=== PATIENT | male | born 1995 | race Caucasian/White ===

== ENCOUNTER 2016-05-01 05:41 | Emergency (ER) | payer SELFPAY ==
[~2016-05-01] VITALS: Ht 172.7 cm; Wt 69.0 kg
[2016-05-01] MEDS ORDERED: ONDANSETRON HCL 4MG/2ML VIAL IV STA (06:30)
[2016-05-01] MEDS ORDERED: SODIUM CHLORIDE 0.9% 1,000 ML IV ONE (06:30)
[2016-05-01] MEDS ORDERED: MORPHINE SULFATE 4 MG/ML CPJ (NOT FOR IM USE) IV STA (06:30)
[2016-05-01 09:26] VITALS: BP 122/61
== END 2016-05-01 09:28 | disposition home or self-care (01) ==
LOC: ER 06:02
DX: S40.022A Contusion of left upper arm, initial encounter (principal); F17.210 Nicotine dependence, cigarettes, uncomplicated; V03.99XA Pedestrian with other conveyance injured in collision with car, pick-up truck or van, unspecified whether traffic or nontraffic accident, initial encounter; Y93.89 Activity, other specified; Y92.89 Other specified places as the place of occurrence of the external cause; Y99.8 Other external cause status
CPT/HCPCS: 73080; 73090; 96361; 96374; 96375; 99285; J2270; J2405; J7030; Z7610; A4565